=== PATIENT | female | born 1970 | race Caucasian/White ===

== ENCOUNTER 2020-11-09 06:58 | Day surgery (SDC) | payer MEDICAID ==
[2020-11-07 15:26] LABS: COVID AG,FIA SOURCE NASOPHARYNGEAL
[~2020-11-09] VITALS: Ht 172.7 cm; Wt 68.2 kg
[~2020-11-09 06:58] MED LIST: KETOROLAC TROMETHAMINE 0.5% 5 ML OPHTHALMIC SOLUTION ONE; MOXIFLOXACIN HCL 0.5% 3 ML OPHTHALMIC SOLUTION ONE; PHENYLEPHRINE HCL 2.5% 2 ML OPHTHALMIC SOLUTION ONE; RINGERS SOLUTION,LACTATED 500 ML IV ONE
[2020-11-09] MEDS ORDERED: RINGERS SOLUTION,LACTATED 500 ML IV ONE (07:00)
[2020-11-09] MEDS ORDERED: TROPICAMIDE 1% 2 ML OPHTHALMIC SOLUTION ONE (07:34)
[2020-11-09] MEDS: MOXIFLOXACIN HCL 0.5% 3 ML OPHTHALMIC SOLUTION OS SCH ×3 (07:36→07:46)
[2020-11-09] MEDS: KETOROLAC TROMETHAMINE 0.5% 5 ML OPHTHALMIC SOLUTION OS SCH ×3 (07:36→07:46)
[2020-11-09] MEDS: TROPICAMIDE 1% 2 ML OPHTHALMIC SOLUTION OS SCH ×3 (07:36→07:46)
[2020-11-09] MEDS: PHENYLEPHRINE HCL 2.5% 2 ML OPHTHALMIC SOLUTION OS SCH ×3 (07:36→07:46)
[2020-11-09] MEDS ORDERED: EPINEPHrine 1:1,000 [1 MG/ML] AMP ONE (09:19)
[2020-11-09] MEDS ORDERED: TETRACAINE HCL/PF 0.5% 4 ML OPHTHALMIC SOLUTION ONE (09:19)
[2020-11-09] MEDS ORDERED: HYALURONATE SODIUM 12 MG/ML 0.8 ML SYRINGE IO ONE (09:19)
[2020-11-09] MEDS ORDERED: LIDOCAINE/PF 1% 2 ML VIAL ONE (09:19)
[2020-11-09] MEDS ORDERED: POVIDONE-IODINE 10% 15 ML SOLUTION UD ONE (09:19)
[2020-11-09] MEDS ORDERED: HYALURONATE SOD/CHONDROITIN SOD 0.5 ML VIAL IO ONE (09:19)
[2020-11-09] MEDS ORDERED: FentaNYL CITRATE-PF 100 MCG/2 ML VIAL IVP ONE (12:00)
[2020-11-09] MEDS ORDERED: MIDAZOLAM HCL 2 MG/2 ML VIAL IVP ONE (12:00)
== END 2020-11-09 09:30 | disposition home or self-care (01) ==
LOC: SURGERY 06:58
PROVIDERS: ATTEND Ophthalmology
DX: H25.12 Age-related nuclear cataract, left eye (principal); Z88.0 Allergy status to penicillin; J44.9 Chronic obstructive pulmonary disease, unspecified
CPT/HCPCS: 66984; 84703; 87426; 93005; C9803; J0171; J2250; J3010; J3490 ×2; J7120; V2632